=== PATIENT | male | born 1995 | race Caucasian/White ===

== ENCOUNTER 2016-12-30 21:05 | Emergency (ER) | payer OTHER ==
[~2016-12-30] VITALS: Ht 190.5 cm; Wt 117.9 kg
[2016-12-30] MEDS ORDERED: ADDERALL 30 MG30 MG PO (21:14)
[2016-12-30] MEDS ORDERED: HYDROCODONE-AP1 EAC6 PO (22:48)
[2016-12-30] MEDS ORDERED: IBUPROFEN 600600 M1 PO (22:48)
[2016-12-30 23:32] VITALS: BP 145/91
== END 2016-12-30 23:43 | disposition home or self-care (01) ==
LOC: ER 21:05
DX: S43.015A Anterior dislocation of left humerus, initial encounter (principal); Z98.890 Other specified postprocedural states; F10.99 Alcohol use, unspecified with unspecified alcohol-induced disorder; W23.1XXA Caught, crushed, jammed, or pinched between stationary objects, initial encounter; Y93.64 Activity, baseball; Y92.89 Other specified places as the place of occurrence of the external cause; Y99.8 Other external cause status